=== PATIENT | female | born 1965 | race Caucasian/White ===

== ENCOUNTER 2017-02-06 10:04 | Day surgery (SDC) | payer MEDICARE ==
[2017-02-06] VITALS (8 sets, daily range): BP systolic 109–132; BP diastolic 56–92; PULSE 63–89; RESP 16–18; O2SAT 96–99
[~2017-02-06] VITALS: Ht 162.6 cm; Wt 64.4 kg
--- NOTE | 2017-02-06 07:56 | PCM.HPANE ---
Patient Data Surgeon Admitting Provider: Attending Provider:Kristi Wharton MD Primary Care Physician:Vamsi Perez MD Other Provider:[facility] Reason for Visit CIN3 Ht/WT & BMI Height (Feet): 5 Height (Inches): 4 Weight (Kilograms): 65.31 Body Mass Index 24.00 Allergies Coded Allergies: latex (Verified Allergy, Unknown, bruising, 02/05/17) tetracycline (Verified Allergy, Unknown, 02/05/17) Past Anesthesia History Anesthesia History: Denies:: Abnormal Airway, Anesthesia Reactions, Difficult Intubation, Fam Anesthesia Reaction Diabetes History Hx Diabetes?: No MRSA MRSA: No Medications Hypertension Medication: No Home Meds Incl Beta Abraham: No Reported Medications Acyclovir (Zovirax)800 Mg Lcosve045 Mg PO 5xdaily PRN outbreak for 10 day course 02/05/17 Cholecalciferol (Vitamin D3) (Vitamin D3)5,000 Unit Tablet5,000 Unit PO DAILY 02/05/17 Lorazepam 0.5 Mg Tablet0.5 Mg PO HS PRN For Insomnia Ref 0 02/05/17 Estradiol (Estrace)42.5 Gm Cream.appl1 G VG WEEKLY #1 TUBE Ref 0 02/05/17 Dalfampridine (Ampyra)10 Mg Bpbtri22 Mg PO BID 02/05/17 History History of ENT Problems?: Yes HEENT History: Denies:: Abnormal Airway Cataracts Difficult Intubation Dysphagia Glaucoma Hearing Problem Sinus Problem TMJ Denture Type: None Teeth Condition: Broken Teeth Tooth Decay Inflamed Gums Hx of Heart Problems?: No Cardiovascular History: Denies:: AICD Abdominal Aortic Aneurism Atrial Fibrillation Cardiac Surgery Chest Pain Congestive Heart Failure Coronary Artery Disease Edema Heart Murmur Hypertension Irregular Heartbeat Pacemaker Peripheral Vascular Hx of Respiratory Problem?: No Respiratory History: Denies:: Asthma COPD Emphysema Oxygen Administration Pneumonia Tuberculosis Use of C-PAP Machine Use of Inhalers / NEBS Hx Neurologic Problems?: Yes Neurological History: Positive for:: Multiple Sclerosis (dx 1990 ) Denies:: CVA Dementia Dizziness Headaches Parkinson's Disease Seizures TIA Other Neurological Pertinent: pt has hx of right sided upper extremity weakness, lower extremity weakness with her MS. Intermittent paresthesias- tries to remember to use cane- but has hx of falls Hx of GI Problems?: No Hx of Problems?: No Genitourinary History: Denies:: Kidney Stones Urinary Tract Infection Female Hx: Denies:: Currently Problems with Breasts? (mass found, has not followed up on ) Skin History: Positive for:: History Skin Disorders? 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 Denies:: Blood Transfusions Hx Diabetes: No Hx Alcohol Use: YesAlcoholic Drinks Per Day: 1-2 drinks occasionallyHx Substance Use: Yes (marijuana- inhaled)Have You Smoked inLast 12 mo: Yes Approx How Many Cigarettes/day: 5 cig daily Stop/Bang Treated for Sleep Apnea?: No Do You Have a CPAP Machine?: No S-Snoring: Do You Snore Loudly: No T-Tired: feel tired, fatigued: Yes O-Obsered: Observed not breath: No P-Blood Pressure: treated: No B- Body Mass Index > 35 kg/m2: No A- Age over 50: Yes N- Neck Large Circumference: No G- Gender Male: No CORBIN Total Score: 2 CORBIN Risk Assessment: Low Risk, <3 Yes Risk Assessment Category Category 1A: Patient has history of documented sleep apnea, and HAS NOT received any narcotic, sedative or anesthesia administration during this stay. Category 1B: Patient has history of documented sleep apnea, and HAS received any narcotic , sedative or anesthesia administration during this stay Category 2: Patient has SUSPECTED Obstructive Sleep Apnea, and HAS received any narcotic , sedative or anesthesia administration during this stay. Category 3: Patient has SUSPECTED Obstructive Sleep Apnea and HAS NOT received narcotic, sedative or anesthesia administration during this stay. Category 4: Outpatient in Procedural Areas with known sleep apnea or who screen positive for High Risk via the STOP/BANG questionnaire. Exam Exam General Appearance: Alert, Oriented X3, Cooperative, No Acute Distress HEENT/AIRWAY: MP 2 Lungs: Clear to Auscultation, Normal Air Movement Heart: Exam Unremarkable, Regular Rate/Rhythm, No Murmurs/Rubs/Gallops Plan Impression Patient chart reviewed, patient interviewed and anesthestic plan with risks, benefits, and alternatives discussed, and informed consent obtained. ASA Physical Status: ASA2 Mod Systemic Disease Anesthetic Plan: GA Bene/Risks/Altern/Consents: Yes HP Complete Prior to Induction: Yes Ra Ritter MD Feb 06, 2017 07:56
[~2017-02-06 10:04] MED LIST: ACYC800T7 PO; CHOL500011 PO; DALF10TA PO; Dexamethasone 4 mg/mL Inj IVPUSH PRN; EPHEDrine Sulfate 50 mg/mL Inj IVPUSH PRN; ESTR42.52 VG; HYDROmorphone 1 mg/mL Inj IVPUSH PRN; LORA0.5T PO; Lactated Ringer's 1,000 ML IV SCH; MetoCLOpramide 5 mg/mL 2 mL Inj IVPUSH PRN; Ondansetron 2 mg/mL 2 mL Inj IVPUSH PRN; Phenylephrine 10,000 mCg/mL Inj IVPUSH PRN; fentaNYL-PF 50 mCg/mL 2 mL Inj IVPUSH PRN
[2017-02-06] MEDS ORDERED: fentaNYL-PF 50 mCg/mL 2 mL Inj ONE (10:05)
[2017-02-06] MEDS ORDERED: Ketamine 10 mg/mL 20 mL Inj ONE (10:05)
[2017-02-06] MEDS ORDERED: Ondansetron 2 mg/mL 2 mL Inj ONE (10:05)
[2017-02-06] MEDS ORDERED: Dexamethasone 4 mg/mL Inj ONE (10:05)
[2017-02-06] MEDS ORDERED: Propofol 10,000 mCg/mL 20 mL Inj ONE (10:05)
[2017-02-06] MEDS: Lactated Ringer's 500 ML IV PRN ×2 (10:16→12:07)
[2017-02-06] MEDS ORDERED: ACETIC ACID 5% IRRIGATION ONE (10:43)
[2017-02-06] MEDS ORDERED: Gelatin Sponge 12-7 MM TOPICAL ONE (12:59)
[2017-02-06] MEDS ORDERED: HYDROcodone-APAP 5-325 mg Tablet PO PRN (13:20)
[2017-02-06] MEDS ORDERED: HYDROmorphone 1 mg/mL Inj IVPUSH PRN (13:20)
[2017-02-06] MEDS ORDERED: Ondansetron 2 mg/mL 2 mL Inj IVPUSH PRN (13:20)
[2017-02-06] MEDS ORDERED: diphenhydrAMINE 25 mg Capsule PO PRN (13:20)
[2017-02-06] MEDS ORDERED: MetoCLOpramide 5 mg/mL 2 mL Inj IVPUSH PRN (13:20)
--- NOTE | 2017-02-06 13:26 | PCM.DIGYN ---
Surgical Discharge Instruction Dates of Hospitalization Date of Hospital Admission 02/06/2017 Providers Admitting Physician: Primary Care Physician: Vamsi Perez MD Attending Physician: Kristi Wharton MD Diagnosis at Time of Discharge Diagnosis at time of discharge CHUCKY 3 Post-operative diagnosis CHUCKY 3 Problems: Diet Discharge Diet: No restrictions Activity Discharge Activity-General: Try not to overdue, Other (Nothing per vagina for two weeks or until vaginal bleeding and discharge have resolved.) Dressing and Incisional Care Hygiene: May shower Follow Up Plan Follow-up Provider (F9): Kristi Wharton MD Follow-up appointment: Weeks (2) Call your provider for: Fever, Chills, Shortness of breath, Heavy vaginal bleeding, Increasing pain Kristi Wharton MD Feb 06, 2017 13:26
--- NOTE | 2017-02-06 23:48 | OP ---
[address] [address] OPERATIVE REPORT PATIENT: DONNIE CARTAGENA : 1965 MR#: [id number] ADMIT: 02/06/2017 JOB ID: [id number] DATE OF SURGERY: 02/06/2017 SURGEON: Kristi Wharton MD. PREOPERATIVE DIAGNOSIS(ES): CHUCKY 3 of the cervix. POSTOPERATIVE DIAGNOSIS(ES): CHUCKY 3 of the cervix. PROCEDURE PERFORMED: Cold knife cone biopsy with colposcopy of the cervix. ANESTHESIA: General. COMPLICATIONS: None. PATHOLOGY SENT: 1. Cone biopsy. 2. Endocervical curettings. FINDINGS AT TIME OF SURGERY: The cervix was normal in appearance. On colposcopy exam, I did not appreciate any significant aceto-white epithelium or evidence of high-grade dysplasia. The vagina was otherwise normal in appearance. INDICATION FOR PROCEDURE: The patient is a 51-year-old, 3, para 2, with a history of MS who was referred by Dr. Rueda in [place] for CHUCKY 3 on endocervical curettings on December 05, 2016. PROCEDURE IN DETAIL: Patient was taken to the operating room where her general anesthesia was obtained without difficulty. She was placed in a lithotomy position in the [facility] and prepared and draped in normal sterile fashion. A surgical time-out was performed. A bivalve speculum was inserted into the patient's vagina. The two stay sutures of 0-Vicryl were placed at three and nine o'clock on the cervical margins. A silk suture was placed at 12 o'clock and several sutures of 0-Vicryl were used at 3, 6, and 9 o'clock to help shape the cone biopsy. Gentle traction was applied to the sutures and a knife was used to excise a cone biopsy of the cervix. This was sent to pathology with a silk suture at 12 o'clock. Endocervical curettage was then performed. The bed of the cone biopsy was cauterized with the rollerball cautery. Good hemostasis was assured. A piece of Gel-Foam was placed in the bed and the stay sutures were tied over this Gel-Foam. This completed our procedure and all instruments were removed from the patient's vagina. All instrument and needle counts were correct x2 at the end of procedure. Patient was taken to her recovery room awake and in good condition.
--- NOTE | 2017-02-09 14:37 | PATH ---
SURGICAL PATHOLOGY Attending Physician:Kristi Wharton, CASE STATUS: Signed Out PATIENT NAME: DONNIE CARTAGENA PID: [id number] : 1965 DATE COLLECTED:02/06/2017 21:37 SPECIMEN: 1: Endocervix, Curettage 2: Cervical, Cone CLINICAL HISTORY: CHUCKY 3 1). ENDOCERVICAL CURETTINGS 2). CERVICAL CONE SILK STITCH AT 12 O'CLOCK FINAL DIAGNOSIS: 1.ENDOCERVICAL CURETTINGS: MUCUS, BLOOD AND INFLAMMATORY CELLS WITH RARE ENDOCERVICAL EPITHELIAL CELLS, NEGATIVE FOR SIGNIFICANT ATYPIA. 2.CERVICAL CONE BIOPSY: CERVICAL TISSUE INCLUDING TRANSFORMATION ZONE WITH NO SIGNIFICANT EPITHELIAL ATYPIA (NO EVIDENCE OF CHUCKY 3). ICD10 Z86.001 GROSS DESCRIPTION: The specimen is received in two formalin filled containers labeled with the patient's name. 1). The specimen is sublabeled "endocervical curettings" and consists of a scant aggregate of mucoid material which is filtered and entirely submitted in cassette 1A. 2). The specimen is sublabeled "cervical cone" and consists of a ding-agudelo rough portion of tissue which measures 2.0 x 2.0 x 1.1 CM. The specimen has a 0.3 CM in length centrally located opening. The specimen is marked with a suture at 12:00. The specimen is oriented with suture at 12:00 inking will go as follows: 12-3 blue, 3-6 yellow, 6-9 black, 9-12 green. Radially sectioned into 12 pieces and entirely submitted in cassettes 2A, 2B, 2C, 2D. 02/06/2017 [facility] MICRO DESCRIPTION: See diagnosis. ICD-9 CODES: CPT CODES: 1: 13361 2: 17507 Electronically Signed Out Jeramy Santos MD [facility] Pathology [facility] [address], [place] [address] Technical component performed at [facility], [facility] [address], [place], [address]
--- NOTE | 2017-02-10 07:27 | PCM.ANEP1 ---
Post Anesthesia PACU Phase 1 Assessment Anesthetic Administered: GA Level of Alertness: Awake, talking WOLF's with Equal Strength: Yes Pain: No Nausea or Vomiting: No CV Function & Hydration Stable: Yes Airway Device: none Oxygen Delivery: Nasal Cannula Lungs: Clear to Auscultation, Normal Air Movement Dermatome Level: Full Sensation PACU Phase 2 Assessment Complications: No Follow up Care: No Patient Instructions Provided: N/A Ra Ritter MD Feb 10, 2017 07:27
== END 2017-02-06 23:59 | disposition home or self-care (01) ==
LOC: SAS 10:04
PROVIDERS: ATTEND Obstetrics & Gynecology
DX: N87.9 Dysplasia of cervix uteri, unspecified (principal); R39.15 Urgency of urination; M54.5 Low back pain; G35 Multiple sclerosis; E55.9 Vitamin D deficiency, unspecified; F12.90 Cannabis use, unspecified, uncomplicated; F17.210 Nicotine dependence, cigarettes, uncomplicated; Z79.890 Hormone replacement therapy; Z86.001 Personal history of in-situ neoplasm of cervix uteri
CPT/HCPCS: 57520; J1100; J2175; J2405; J3010; J7120